=== PATIENT | male | born 1945 | race Caucasian/White ===

== ENCOUNTER 2025-05-20 10:43 | Inpatient (IN) | payer BC, MEDICARE ==
[~2025-05-20] VITALS: Ht 182.9 cm; Wt 100.0 kg
[2025-05-20 10:45] VITALS: O2SAT 99
[2025-05-20 11:32] LABS: BASOPHILS % 0.9 % (0.0-2.0); EOSINOPHILS % 6.7 % (0.0-5.0); HEMATOCRIT. 35.5 % (42.0-52.0); HEMOGLOBIN. 11.7 g/dL (14.0-18.0); LYMPHOCYTES % 14.7 % (20.0-50.0); MEAN PLATELET VOLUME 8.8 fl (7.4-10.4); MONOCYTES % 13.6 % (2.0-8.0); NEUTROPHILS % 64.1 % (40.0-76.0); PLATELET 242 x1000/uL (130-400); RED BLOOD CELL COUNT 4.02 mill/uL (4.7-6.1); RED CELL DISTRIBUTION WIDTH 14.0 % (11.6-14.6)
[2025-05-20] MEDS: ASPIRIN 81MG TABLET PO ONE (11:36)
[2025-05-20] MEDS: CLOPIDOGREL 75MG TABLET PO ONE (11:36)
[2025-05-20 11:42] LABS: CREATININE 1.1 mg/dL (0.6-1.3); ETHANOL BLOOD < 10 mg/dL (<10); UREA NITROGEN BLOOD 27 mg/dL (9-23)
[2025-05-20 11:44] LABS: INR 0.9
[2025-05-20] MEDS ORDERED: IOHEXOL-350 100 ML BOTTLE ONE (12:11)
[2025-05-20 13:18] VITALS: BP 139/85; PULSE 72; RESP 16; TEMP 36.8
[2025-05-20] MEDS ORDERED: CELE-116 PO (13:32)
[2025-05-20] MEDS ORDERED: POTA-205 MT (13:32)
[2025-05-20] MEDS ORDERED: FURO40TA5 PO (13:32)
[2025-05-20] MEDS ORDERED: EZET10TA81 PO (13:32)
[2025-05-20] MEDS ORDERED: EMPA25TA PO (13:32)
[2025-05-20] MEDS ORDERED: LOSA50TA41 PO (13:32)
[2025-05-20] MEDS ORDERED: PIOG15TA68 PO (13:32)
[2025-05-20] MEDS ORDERED: ASPI-1406 PO (13:32)
[2025-05-20] MEDS ORDERED: CARV12.545 PO (13:32)
[2025-05-20] MEDS ORDERED: ATOR40TA70 PO (13:32)
[2025-05-20] MEDS ORDERED: HYDR-4348 PO (13:32)
[2025-05-20] MEDS ORDERED: SEMA2PEN (13:32)
[2025-05-20] MEDS ORDERED: METF-1547 (13:32)
[2025-05-20] MEDS ORDERED: AMLO5TAB88 PO (13:32)
[2025-05-20] MEDS ORDERED: OMEP20TA23 PO (13:32)
[2025-05-20] MEDS ORDERED: ACETAMINOPHEN 325MG TABLET PO PRN (14:00)
[2025-05-20] MEDS ORDERED: CLONIDINE 0.1MG TABLET PO PRN (14:00)
[2025-05-20] MEDS ORDERED: IPRATROPIUM/ALBUTEROL 0.5-3(2.5)MG/3ML NEB HHN PRN (14:00)
[2025-05-20] MEDS ORDERED: DOCUSATE SODIUM 100MG CAPSULE PO PRN (14:00)
[2025-05-20] MEDS ORDERED: DEXTROSE 50% WATER 50ML SYRINGE IV PRN (14:00)
[2025-05-20] MEDS ORDERED: ONDANSETRON HCL 4MG/2ML INJ IV PRN (14:00)
[2025-05-20] MEDS: SODIUM CHLORIDE 0.9% 1,000 ML IV ONE (14:31)
[2025-05-20] MEDS: PANTOPRAZOLE SODIUM 40 MG/VIAL IV SCH (14:39)
[2025-05-20 16:00] VITALS: BP 135/56; PULSE 71; RESP 20; TEMP 36.6; O2SAT 100
[2025-05-20 16:40] LABS: CREATINE KINASE MB FRACTION 1.1 ng/mL (0.5-3.6); TROPONIN I HIGH SENSITIVITY < 4 ng/L (3.0-53)
[2025-05-20] MEDS: BLOOD SUGAR DIAGNOSTIC STRIP TEST SCH (17:13)
[2025-05-20] MEDS: INSULIN LISPRO 100 UNITS/ML SUBCUT SCH (17:23)
[2025-05-20 18:57] LABS: CLARITY URINE CLEAR (CLEAR); GLUCOSE URINE 3+ (NEGATIVE); KETONES URINE NEGATIVE (NEGATIVE); LEUKOCYTE ESTERASE URINE NEGATIVE (NEGATIVE); NITRITE URINE NEGATIVE (NEGATIVE); OCCULT BLOOD URINE NEGATIVE (NEGATIVE); PH URINE 6.5 (4.5-8.0); PROTEIN URINE NEGATIVE (NEGATIVE); SPECIFIC GRAVITY URINE 1.017 (1.005-1.030); UROBILINOGEN URINE 0.2 E.U./dL (0.2-1.0)
[2025-05-20 19:13] LABS: *AMPHETAMINES SCREEN URINE NEGATIVE (NEGATIVE); *BARBITURATES SCREEN URINE NEGATIVE (NEGATIVE); *BENZODIAZEPINES SCREEN URINE NEGATIVE (NEGATIVE); *COCAINE SCREEN URINE NEGATIVE (NEGATIVE); CANNABINOID URINE SCREEN NEGATIVE (NEGATIVE); METHADONE URINE SCREEN NEGATIVE (NEGATIVE); OPIATES URINE SCREEN PRESUMPTIVE POSITIVE (NEGATIVE); PHENCYCLIDINE URINE SCREEN NEGATIVE (NEGATIVE)
[2025-05-20 19:14] LABS: COLOR URINE STRAW (YELLOW); ECSTASY MDMA SCREEN URINE NEGATIVE (NEGATIVE)
[2025-05-20 19:15] LABS: RBC URINE NONE SEEN /hpf (0-2); SQUAMOUS EPITHELIAL CELL URINE RARE /lpf (RARE/1+); WBC URINE 0-2 /hpf (0-2)
[2025-05-20 19:16] LABS: BACTERIA URINE NONE SEEN
[2025-05-20 20:00] VITALS: BP 131/77; PULSE 77; RESP 17; TEMP 36.5; O2SAT 98
[2025-05-20] MEDS: ACETAMINOPHEN 325MG TABLET PO PRN (21:00)
[2025-05-20] MEDS: ATORVASTATIN CALCIUM 40MG TABLET PO SCH (21:00)
[2025-05-21] VITALS: BP 135/68; PULSE 78; RESP 20; TEMP 36.7; O2SAT 97
[2025-05-21 00:22] LABS: CREATINE KINASE MB FRACTION 1.7 ng/mL (0.5-3.6); TROPONIN I HIGH SENSITIVITY < 4 ng/L (3.0-53)
[2025-05-21 04:00] VITALS: BP 138/73; PULSE 75; RESP 19; TEMP 36.5; O2SAT 98
[2025-05-21 06:27] LABS: BASOPHILS % 1.2 % (0.0-2.0); EOSINOPHILS % 6.0 % (0.0-5.0); HEMATOCRIT. 36.8 % (42.0-52.0); HEMOGLOBIN. 12.8 g/dL (14.0-18.0); LYMPHOCYTES % 14.1 % (20.0-50.0); MEAN PLATELET VOLUME 9.1 fl (7.4-10.4); MONOCYTES % 11.5 % (2.0-8.0); NEUTROPHILS % 67.2 % (40.0-76.0); PLATELET 267 x1000/uL (130-400); RED BLOOD CELL COUNT 4.08 mill/uL (4.7-6.1); RED CELL DISTRIBUTION WIDTH 14.3 % (11.6-14.6)
[2025-05-21 06:53] LABS: CREATININE 1.0 mg/dL (0.6-1.3)
[2025-05-21 06:54] LABS: LDL CHOLESTEROL 44 mg/dL (5-100); TRIGLYCERIDE 102 mg/dL (0-150); UREA NITROGEN BLOOD 20 mg/dL (9-23)
[2025-05-21 08:00] VITALS: BP 137/61; PULSE 83; RESP 19; TEMP 36.8; O2SAT 100
[2025-05-21] MEDS ORDERED: ASPIRIN 81MG EC TABLET PO SCH (09:00)
[2025-05-21] MEDS: ASPIRIN 81MG EC TABLET PO SCH (09:52)
[2025-05-21] MEDS: CLOPIDOGREL 75MG TABLET PO SCH (09:52)
[2025-05-21] MEDS: FUROSEMIDE 40MG TABLET PO SCH (09:52)
[2025-05-21 12:00] VITALS: BP 134/60; PULSE 79; RESP 19; TEMP 36.6; O2SAT 97
[2025-05-21 16:00] VITALS: BP 142/66; PULSE 79; RESP 19; TEMP 36.7; O2SAT 96
== END 2025-05-21 17:12 | disposition left against medical advice (07) | DRG 64 ==
LOC: ER 10:43 → 8WST 12:02 → ENRESERV 12:34
PROVIDERS: ADMIT Internal Medicine; ATTEND Internal Medicine
DX: I63.9 Cerebral infarction, unspecified (principal); G93.6 Cerebral edema; I10 Essential (primary) hypertension; E11.9 Type 2 diabetes mellitus without complications; D64.9 Anemia, unspecified; I25.10 Atherosclerotic heart disease of native coronary artery without angina pectoris; R29.703 NIHSS score 3; I45.10 Unspecified right bundle-branch block; Z53.21 Procedure and treatment not carried out due to patient leaving prior to being seen by health care provider; Z95.2 Presence of prosthetic heart valve; Z85.46 Personal history of malignant neoplasm of prostate; Z88.0 Allergy status to penicillin; Z95.1 Presence of aortocoronary bypass graft; Z83.3 Family history of diabetes mellitus; Z82.49 Family history of ischemic heart disease and other diseases of the circulatory system; Z79.899 Other long term (current) drug therapy; Z79.84 Long term (current) use of oral hypoglycemic drugs; Z79.82 Long term (current) use of aspirin
CPT/HCPCS: 36415; 70496; 70498; 70551; 71045; 80048; 80061; 80305; 80320; 81003; 82550; 82553; 82728; 82962; 83036; 83540; 83550; 84443; 84484; 85025; 92523; 92610; 93005; 97161; 97166; 99291; J1815; J2470; Q9967; G0480